=== PATIENT | female | born 1945 | race Caucasian/White ===

== ENCOUNTER 2018-03-14 13:02 | Outpatient (CLI) | payer MEDICARE, BC | END 2018-03-14 13:03 | disposition home or self-care (01) | LOC: BICMAMMO 13:02 | PROVIDERS: ATTEND Internal Medicine | DX: Z12.31 Encounter for screening mammogram for malignant neoplasm of breast (principal) | CPT/HCPCS: 77063; 77067 ==

== ENCOUNTER 2018-12-03 08:57 | Outpatient (CLI) | payer MEDICARE, BC ==
--- NOTE | 2018-12-03 10:56 | MRI ---
EXAM: MRI of the brain without and with contrast HISTORY: Brain tumor; follow-up of meningioma COMPARISON: 12/15/2016, 12/09/2014, 12/21/2011 TECHNIQUE: Multiplanar multisequence MR images were obtained of the brain without and with IV contras t. FINDINGS: There is scattered foci of high FLAIR signal in the subcortical and periventricular white matter, lik gigi secondary to small vessel ischemic disease. There is a stable homogeneously enhancing mass along the left vertex which appears extra-axial and me asures 1.5 cm in greatest dimension. This mass involves the dura and inner table of the calvarium. No restricted diffusion. No abnormal enhancement. No hydronephrosis. No extra-axial fluid collection or intracranial hemorrhage. The expected flow voids are present. Corpus callosum, pituitary, and craniocervical junction are within normal limits. The calvarium and overlying soft tissues are unremarkable. The paranasal sinuses and mastoid air cells are well aerated. IMPRESSION: Stable left extra-axial mass.
== END 2018-12-03 08:58 | disposition home or self-care (01) ==
LOC: SCSMRI 08:57
PROVIDERS: ATTEND Neurological Surgery
DX: D49.6 Neoplasm of unspecified behavior of brain (principal); G93.89 Other specified disorders of brain
CPT/HCPCS: 70553; 82565

== ENCOUNTER 2022-03-02 12:26 | Outpatient (CLI) | payer MEDICARE, BC | END 2022-03-02 12:27 | disposition home or self-care (01) | LOC: SCSMRI 12:26 | PROVIDERS: ATTEND Neurological Surgery | DX: D33.2 Benign neoplasm of brain, unspecified (principal); I67.82 Cerebral ischemia; G93.9 Disorder of brain, unspecified | CPT/HCPCS: 70553 ==